=== PATIENT | male | born 1970 | race Caucasian/White ===

== ENCOUNTER 2018-11-24 08:28 | Emergency (ER) | payer OTHER, SELFPAY ==
[~2018-11-24] VITALS: Ht 175.3 cm; Wt 119.9 kg
[2018-11-24 08:45] VITALS: BP 140/89
--- NOTE | 2018-11-24 09:19 | NUR ---
PAVER INSTALLER: PT TO ROOM FROM [facility], VIA WHEELCHAIR, TRANSFERED FROM WHEELCHAIR TO [facility]
--- NOTE | 2018-11-24 09:44 | NUR ---
md is at the bedside for consult.
== END 2018-11-24 10:37 | disposition home or self-care (01) ==
LOC: ED 10:20
DX: M25.461 Effusion, right knee (principal)
CPT/HCPCS: 29505; 99283